=== PATIENT | female | born 1960 | race Caucasian/White ===

== ENCOUNTER 2016-12-25 09:51 | Emergency (ER) | payer OTHER ==
--- NOTE | ~2016-12-25 | CT4 ---
[facility] A Service of [facility] RADIOLOGY TEXT RESULTS PATIENT: TR CAMPOS LOCATION: [facility] : [birth year] UNIT #: [id number] AGE: [address]: Yvonne Rocha MD SEX: F ORDER DR: [id number] [place] [id number] [facility]. [place], [place] [address] [id number] E MR#: [id number] Acc #: [id number] NAME: TR CAMPOS : 1960 SEX: F STUDY DATE/TIME: 12/25/2016 12:04 UNIT: [facility] ROOM: STUDY DESCRIPTION: CT Abd and Pelv Wo Cont Attending Physician: Yvonne Rocha M.D. Ordering Physician: Yvonne Rocha M.D. Primary Care Physician: No Primary Care Physician MEDICAL IMAGING REPORT This report is preliminary unless electronic signature is present EXAM Abdomen and pelvis CT, no contrast, 12/25/2016. INDICATION 56-year-old female with lower abdominal pain, right back pain for 3 days. History of renal malignancy in 2002, status post appendectomy and hysterectomy. TECHNIQUE Noncontrast abdomen and pelvis CT was performed. This CT exam was performed with one or more of the following radiation dose reduction techniques: automatic exposure control, adjustment of mA and/or kV according to patient size, and iterative reconstruction. COMPARISON STUDIES No comparison studies. FINDINGS CT ABDOMEN: Exam markedly degraded by noncontrast technique. Augmentation mammoplasty changes present bilaterally. Minimal atelectasis in the included lung bases. The heart is borderline enlarged. Mild pectus deformity present. Trace pericardial thickening/fluid present. Aorta demonstrates no aneurysm. Spleen and adrenal glands are unremarkable along with the pancreas. Gallbladder and liver unremarkable. No hydronephrosis or radiopaque stone associated with either kidney. There are metallic clips inferior to the right kidney and at the base of the cecum most characteristic of prior appendectomy or other surgical procedure. No retroperitoneal adenopathy. CT PELVIS: Bladder unremarkable. Uterus surgically absent. There are vascular calcifications in the pelvis. No adnexal mass, free fluid, [facility] of [facility] RADIOLOGY TEXT RESULTS PATIENT: TR CAMPOS [id number] [birth year] UNIT #: [id number] AGE: [address]: Yvonne Rocha MD SEX: F ORDER DR: drainable fluid collection present. Bowel otherwise unremarkable. Inguinal canals unremarkable. No suspicious bone lesion. IMPRESSION Negative noncontrast abdomen and pelvis CT. Surgical absence of the uterus and appendix. No radiopaque stone or hydronephrosis of either kidney. Dictated by... Benedicto Tirado M.D. THIS IS AN ELECTRONICALLY VERIFIED REPORT Benedicto Tirado M.D. at 12/25/2016 5:15 PM TOM/pj TD: 12/25/2016 16:16 JOB #: [id number] MEDICAL IMAGING REPORT COPY
[2016-12-25 09:25] LABS: URINE SOURCE CLEAN CATCH
[2016-12-25 09:30] LABS: URINE APPEARANCE CLEAR; URINE BILIRUBIN NEG (NEG); URINE BLOOD TRACE (NEG); URINE COLOR YELLOW; URINE GLUCOSE NEG (NEG); URINE KETONE NEG (NEG); URINE LEUKOCYTE ESTERASE 1+ (NEG); URINE NITRATE NEG (NEG); URINE PH 5.5 (5-8); URINE PROTEIN NEG (NEG); URINE SPECIFIC GRAVITY 1.014 (1.003-1.035); URINE UROBILINOGEN 0.2 MG/DL (NEG)
[2016-12-25 09:33] LABS: CULTURE INDICATED? YES; URINE BACTERIA AUWI NEG (NEGATIVE); URINE SQUAMOUS EPITHELIAL CELL OCC /[HPF]
[2016-12-25 09:45] LABS: URINE MUCUS PRESENT
[2016-12-25 10:07] LABS: BASOPHIL% 0.5 % (0-2.5); EOSINOPHIL# 0.2 X10e3 (0-0.7); EOSINOPHIL% 2.9 % (0.0-7.0); HEMATOCRIT 41.3 % (35.0-45.0); HEMOGLOBIN 13.4 gm/dL (12.0-16.0); LYMPHOCYTE# 2.8 X10e3 (1.0-3.5); LYMPHOCYTE% 34.5 % (17.0-45.0); MEAN CELL VOLUME 95.7 FL (83-96); MEAN CORPUSCULAR HEMOGLOBIN 31.2 PG (28-34); MEAN CORPUSCULAR HGB CONC 32.6 g/dL (30-36); MEAN PLATELET VOLUME 8.2 FL (6.5-11.5); MONOCYTE# 0.5 X10e3 (0-1.0); MONOCYTE% 6.4 % (3.0-12.0); NEUTROPHIL# 4.5 X10e3 (1.5-7.1); NEUTROPHIL% 55.7 % (40-75); PLATELET COUNT 268 X10e3 (140-420); RED BLOOD COUNT 4.31 X10e (3.90-5.30); RED CELL DISTRIBUTION WIDTH 14.3 % (11.0-15.5); WHITE BLOOD COUNT 8.1 X10e3 (4.0-10.5)
[2016-12-25 10:13] LABS: DIFF IND NO
[2016-12-25 10:38] LABS: BILIRUBIN, DIRECT 0.1 mg/dL (0.0-0.2); BILIRUBIN,INDIRECT 0.5 mg/dL (0.0-0.9); BILIRUBIN,TOTAL 0.6 mg/dL (0.2-2.0); CALCIUM SERUM 9.6 mg/dL (8.4-10.2); CREATININE SERUM 1.2 mg/dL (0.6-1.4); GLOM FILT RATE Estimated 49.8 mL/min (>60); POTASSIUM 3.5 mmol/L (3.5-5.1); PROTEIN TOTAL SERUM 7.2 g/dL (6.0-8.3)
== END 2016-12-25 15:15 | disposition home or self-care (01) ==
LOC: CED 09:51
PROVIDERS: Nurse Practitioner
DX: R10.9 Unspecified abdominal pain (principal); R11.2 Nausea with vomiting, unspecified; I10 Essential (primary) hypertension; F17.210 Nicotine dependence, cigarettes, uncomplicated; Z91.041 Radiographic dye allergy status; Z87.442 Personal history of urinary calculi
CPT/HCPCS: 36415; 74176; 80048; 80076; 81003; 83605; 83690; 85025; 87040; 87086; 96361; 96374; 96375; 96376; 99284; J2270; J2405

== ENCOUNTER 2017-05-29 10:05 | Emergency (ER) | payer OTHER ==
[~2017-05-29] VITALS: Ht 160 cm; Wt 60.3 kg
--- NOTE | ~2017-05-29 | CT4 ---
[facility] A Service of [facility] RADIOLOGY TEXT RESULTS PATIENT: TR CAMPOS LOCATION: [facility] : [birth year] UNIT #: [id number] AGE: [address]: Fanta Escobedo APRN SEX: F ORDER DR: [id number] [facility] [address] [place], [place] [address] [id number] E MR#: [id number] Acc #: [id number] NAME: TR CAMPOS : 1960 SEX: F STUDY DATE/TIME: 05/29/2017 13:25 UNIT: [facility] ROOM: STUDY DESCRIPTION: CT Abd and Pelv Wo Cont Attending Physician: Fanta Escobedo A.P.R.N. Ordering Physician: Ed Felton Ga M.D. Primary Care Physician: Tessa Solorzaon M.D. MEDICAL IMAGING REPORT This report is preliminary unless electronic signature is present EXAM CT abdomen and pelvis, 05/29/2017. HISTORY Right flank pain since Wednesday, kidney 20-year cancer, difficulty urinating. History of kidney stones and kidney cancer. TECHNIQUE CT abdomen and pelvis performed without administration of oral or intravenous contrast. This CT exam was performed with one or more of the following radiation dose reduction techniques: automatic exposure control, adjustment of mA and/or kV according to patient size, and iterative reconstruction. FINDINGS Lung bases clear. Inferior heart and pericardium unremarkable. Liver, gallbladder, spleen, pancreas, adrenal glands, kidneys unremarkable. No hydronephrosis, nephrolithiasis or perinephric inflammatory change or suspicious renal mass lesion on these noncontrast enhanced images. The bilateral ureters are normal in appearance. Urinary bladder contains a Babcock catheter and is decompressed. No inguinal adenopathy. CT PELVIS: Status post hysterectomy. There is no pelvic or retroperitoneal adenopathy. The distal esophagus, stomach, small bowel are unremarkable. Surgical clips adjacent to the cecum. Patient appears to be status post appendectomy. Tablets in the colon. Large stool burden seen throughout the colon without pathologic dilatation. No colonic inflammatory change. Correlate with any clinical signs or symptoms of constipation. No free air or fluid collection. Scattered atherosclerotic arterial calcifications. Bony structures are remarkable. IMPRESSION 1. No acute abnormality involving the kidneys. No hydronephrosis, STS. [facility] A Service of [facility] RADIOLOGY TEXT RESULTS PATIENT: TR CAMPOS LOCATION: [facility] : [birth year] UNIT #: [id number] AGE: [address]: Fanta Escobedo [employer] SEX: F ORDER DR: nephrolithiasis or inflammatory change. No renal mass lesion suggested. No secondary signs of recent stone passage. 2. Postoperative changes of appendectomy and hysterectomy. 3. Large stool burden throughout colon without pathologic dilatation or inflammatory change. No obstruction. The findings may reflect constipation. Correlate clinically. 4. Gallbladder, pancreas unremarkable. 5. See remainder of findings in body of report. Dictated by... Rocco Hickey M.D. THIS IS AN ELECTRONICALLY VERIFIED REPORT Rocco Hickey M.D. at 05/30/2017 9:31 PM MAHESH/raphael TD: 05/29/2017 19:24 JOB #: [id number] MEDICAL IMAGING REPORT Page 1 of 1 COPY
[2017-05-29 11:27] LABS: URINE SOURCE CLEAN CATCH
[2017-05-29 11:31] LABS: URINE APPEARANCE CLEAR; URINE BILIRUBIN NEG (NEG); URINE BLOOD NEG (NEG); URINE COLOR YELLOW; URINE GLUCOSE NEG (NEG); URINE KETONE NEG (NEG); URINE LEUKOCYTE ESTERASE NEG (NEG); URINE NITRATE NEG (NEG); URINE PROTEIN NEG (NEG); URINE SPECIFIC GRAVITY 1.011 (1.003-1.035); URINE UROBILINOGEN 0.2 MG/DL (NEG)
[2017-05-29 11:35] LABS: BASOPHIL# 0.1 X10e3 (0-0.3); BASOPHIL% 0.8 % (0-2.5); EOSINOPHIL# 0.1 X10e3 (0-0.7); EOSINOPHIL% 1.7 % (0.0-7.0); HEMATOCRIT 37.6 % (35.0-45.0); HEMOGLOBIN 12.8 gm/dL (12.0-16.0); LYMPHOCYTE# 3.3 X10e3 (1.0-3.5); LYMPHOCYTE% 37.7 % (17.0-45.0); MEAN CELL VOLUME 94.3 FL (83-96); MEAN CORPUSCULAR HEMOGLOBIN 32.1 PG (28-34); MEAN PLATELET VOLUME 7.8 FL (6.5-11.5); MONOCYTE# 0.5 X10e3 (0-1.0); MONOCYTE% 5.2 % (3.0-12.0); NEUTROPHIL# 4.7 X10e3 (1.5-7.1); NEUTROPHIL% 54.6 % (40-75); PLATELET COUNT 279 X10e3 (140-420); RED BLOOD COUNT 3.98 X10e (3.90-5.30); RED CELL DISTRIBUTION WIDTH 13.8 % (11.0-15.5); WHITE BLOOD COUNT 8.7 X10e3 (4.0-10.5)
[2017-05-29 11:36] LABS: DIFF IND NO
[2017-05-29 11:39] LABS: CULTURE INDICATED? NO
[2017-05-29 12:05] LABS: ALBUMIN SERUM 4.3 g/dL (3.5-5.0); BILIRUBIN,TOTAL 0.7 mg/dL (0.2-2.0); CALCIUM SERUM 9.4 mg/dL (8.4-10.2); GLOM FILT RATE Estimated 63.8 mL/min (>60); POTASSIUM 3.3 mmol/L (3.5-5.1); PROTEIN TOTAL SERUM 7.7 g/dL (6.0-8.3)
== END 2017-05-29 16:05 | disposition home or self-care (01) ==
LOC: CED 10:05
PROVIDERS: Nurse Practitioner
DX: R30.0 Dysuria (principal); R10.9 Unspecified abdominal pain; E87.6 Hypokalemia; Z87.891 Personal history of nicotine dependence; Z90.710 Acquired absence of both cervix and uterus; Z90.49 Acquired absence of other specified parts of digestive tract; Z91.041 Radiographic dye allergy status
CPT/HCPCS: 36415; 51702; 74176; 80053; 81003; 85025; 96361; 96374; 96375; 99284; J2270; J2405

== ENCOUNTER 2017-05-31 11:19 | Inpatient (IN) | payer OTHER ==
[~2017-05-31] VITALS: Ht 160 cm; Wt 63.4 kg
--- NOTE | ~2017-05-31 | CO ---
Unit #: [id number] #: [id number] Patient: TR CAMPOS [id number] [address] [place], [place] [address] [id number] I MR#: [id number] NAME: TR CAMPOS ROOM: 55 Age: 56 Sex: F Admission Date: 05/31/2017 : 1960 Attending Physician: Tessa Solorzano M.D. Primary Care Physician: Tessa Solorzano M.D. Consultation Date: 05/31/2017 CONSULTATION REPORT REASON FOR CONSULTATION Urinary retention. HISTORY OF PRESENT ILLNESS This is a 56-year-old woman, who follows with my partner, Radha Montoya, who was in the emergency department 2 days ago with acute urinary retention. She was discharged home with Babcock catheter. She returns today complaining of dizziness and right lower quadrant pain, although both currently improved. She denies frequency, urgency, or even nocturia, but has hesitancy and trouble emptying. She has taken Flomax for years and at one point was catheterized herself, but only about every other day. She denies any history of gross hematuria. She has past 6 or 7 kidney stones lifelong and never required surgery. She does have frequent urinary infections every month or two. Most recently, she underwent a negative anatomic evaluation by Dr. Garcia with CT scan, stone protocol negative on 01/25/2017 and a negative cystoscopy on 02/16/2017, due for followup in August. PAST MEDICAL HISTORY Bipolar disorder, hypertension, allergies, hyperlipidemia. PAST SURGICAL HISTORY States part of her left kidney removed for cancer, but there is no flank, abdominal, or laparoscopic incisional scar noted which she states this was 15 to 20 years ago. She also states she had lymph nodes removed from all over for cancer, but no chemotherapy and states that these were removed from her neck, left axilla, occipital area, and groin. Other documented surgeries include a hysterectomy, appendectomy, breast implants. MEDICATIONS Include Stahist, Cipro, Zofran, phenazopyridine, Singulair, Lexapro, Glucophage, Coreg, chlorthalidone, gabapentin, allergy relief, Victoza, Flonase, Lipitor, Ambien, Seroquel. Tamsulosin was not included in this list, but the patient reportedly takes it. ALLERGIES Intravenous contrast. FAMILY HISTORY Noncontributory. SOCIAL HISTORY States she stops smoking 30 days ago and has subsequently discontinued Chantix. Unit #: [id number] #: [id number] Patient: TR CAMPOS REVIEW OF SYSTEMS Denies constipation or diarrhea. Reports some subjective chills, but no fever. PHYSICAL EXAMINATION VITAL SIGNS: Include temperature 97.3, pulse 80, blood pressure 139/76, respirations 18, height 5 feet 3 inches, weight 137 pounds, BMI 24. GENERAL: The patient is pleasant, alert, sitting up, eating in the emergency department trauma room, mildly hard, but pleasant affect and normal mood. HEENT: Unremarkable. LUNGS: Clear. CARDIAC: Rate and rhythm regular. ABDOMEN: Moderately obese. Soft and nontender. No masses, hernias, scars, or other abnormalities. EXTREMITIES: No edema. NEUROLOGIC: Intact. Babcock catheter in place, draining clear yellow urine. DIAGNOSTIC STUDIES LABORATORY RESULTS: Include urinalysis normal from 05/29/2017. Today, there was 1+ leukocyte esterase, no blood, no nitrites, and no bacteria, 2 to 5 white cells. Creatinine 0.9. WBC 8.8. IMPRESSION 1. Chronic urinary retention. 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 2. Recurrent urinary tract infection secondary to #1, but no evidence of infection on recent emergency department admission or today. PLAN We will follow up on renal ultrasound that was ordered. We will resume tamsulosin b.i.d. Assuming the patient clinically stable, can pursue a voiding trial in 1 to 2 days. She should keep followup with Dr. Garcia and they wished to resume self catheterization in the meantime. Thank you for the consultation. We will follow with you as evidently mild sepsis is being ruled out. Dictated by... Wil Howell M.D. MIC/sam TD: 05/31/2017 17:21 JOB #: [id number] CONSULTATION REPORT Page 1 of 1 X Wil Howell MD CONSULTATION REPORT
--- NOTE | ~2017-05-31 | CT71 ---
[facility] A Service of [facility] RADIOLOGY TEXT RESULTS PATIENT: TR CAMPOS LOCATION: [place] [address] : [birth year] UNIT #: [id number] AGE: [address]: Tessa Solorzano MD SEX: F ORDER DR: [id number] [place] [id number] [place], [place] [address] [id number] I MR#: [id number] Acc #: [id number] NAME: TR CAMPOS : 1960 SEX: F STUDY DATE/TIME: 06/02/2017 18:04 UNIT: [facility] ROOM: [facility] STUDY DESCRIPTION: CT Head Wo Contrast Attending Physician: Tessa Solorzano M.D. Ordering Physician: Reza Choe M.D. Primary Care Physician: Tessa Solorzano M.D. MEDICAL IMAGING REPORT This report is preliminary unless electronic signature is present EXAM Head CT, no contrast, 06/02/2017 HISTORY Weakness and dizziness for 2 days. COMPARISON None. PROCEDURE Axial unenhanced head CT. This CT exam was performed with one or more of the following radiation dose reduction techniques: automatic exposure control, adjustment of mA and/or kV according to patient size, and iterative reconstruction. FINDINGS There is no intracranial hemorrhage or mass. There is no hydrocephalus or extraaxial fluid collection. The extracranial soft tissues are normal. The skull base and calvarium are normal. IMPRESSION Normal negative unenhanced head CT. Dictated by... Douglas Harris M.D. THIS IS AN ELECTRONICALLY VERIFIED REPORT Douglas Harris M.D. at 06/03/2017 4:59 PM YOAN/carmina [facility] A Service [facility] RADIOLOGY TEXT RESULTS PATIENT: TR CAMPOS LOCATION: [place] [address] : [birth year] UNIT #: [id number] AGE: [address]: Tessa Solorzano MD SEX: F ORDER DR: TD: 06/02/2017 23:31 JOB #: [id number] MEDICAL IMAGING REPORT Page 1 of 1 COPY
--- NOTE | ~2017-05-31 | CR72 ---
[facility] A Service of [facility] RADIOLOGY TEXT RESULTS PATIENT: TR CAMPOS LOCATION: [place] [address]- : [birth year] UNIT #: [id number] AGE: [address]: Tessa Solorzano MD SEX: F ORDER DR: [id number] [facility] [address] [facility] [place], [place] [address] [id number] I MR#: [id number] Acc #: [id number] NAME: TR CAMPOS : 1960 SEX: F STUDY DATE/TIME: 05/31/2017 12:18 UNIT: [facility] ROOM: [facility] STUDY DESCRIPTION: CR Chest Single View Portable Attending Physician: Tessa Solorzano M.D. Ordering Physician: Bong Apodaca M.D. Primary Care Physician: Tessa Solorzano M.D. MEDICAL IMAGING REPORT This report is preliminary unless electronic signature is present EXAM Chest portable, 05/31/2017 1218 hours CLINICAL HISTORY 56-year-old woman complaining of shortness of air, weakness and dizziness today. History of kidney cancer and lymphatic cancer. COMPARISON CT abdomen 05/29/2017. No prior chest film. FINDINGS Single portable upright view of the chest demonstrates low lung volumes. The heart size is at the upper limits of normal and there is a tortuous aorta. There is mild soft tissue prominence in the azygos region measuring up to 2.3 cm which could represent prominent azygos vein or lymph node. The lungs are clear. No effusion is seen. IMPRESSION 1. Low lung volume film with clear lungs. No effusions. 2. Soft tissue fullness in the right paratracheal region could represent vascular structures or lymph node enlargement. Consider followup two-view chest film or chest CT if warranted. Dictated by... Smiley Quintana M.D. THIS IS AN ELECTRONICALLY VERIFIED REPORT Smiley Quintana M.D. at 06/01/2017 9:11 AM ELISEO/carmina [facility] A Service of [facility] RADIOLOGY TEXT RESULTS PATIENT: TR CAMPOS LOCATION: [facility] [id number] : [birth year] UNIT #: [id number] AGE: [address]: Tessa Solorzano MD SEX: F ORDER DR: TD: 05/31/2017 21:36 JOB #: [id number] MEDICAL IMAGING REPORT Page 1 of 1 COPY
--- NOTE | ~2017-05-31 | DS ---
Unit #: [id number] #: [id number] Patient: TR CAMPOS [id number] [address] [address] [id number] I MR#: [id number] NAME: TR CAMPOS ROOM: 55 Age: 56 Sex: F Admission Date: 05/31/2017 : 1960 Discharge Date: 06/03/2017 Attending Physician: Tessa Solorzano M.D. Primary Care Physician: Tessa Solorzano M.D. DISCHARGE SUMMARY DISCHARGE DIAGNOSES 1. Pre-syncope status post negative workup, status post negative computed tomography of the head. No more episodes of extreme lightheadedness and pre-syncope while in the hospital. Stable to be discharged. 2. Questionable sepsis with questionable urinary tract infection. Was treated with empiric antibiotics. Blood culture negative. Urine unremarkable. Stable to be discharged. 3. Urinary retention status post urology evaluation. Follow up with urology as an outpatient. Started on Flomax. 4. History of bipolar disorder. Continue home medicines. 5. History of restless leg syndrome. Continue home medications. 6. Hypertension. Stable. Resume home medicines. DISCHARGE MEDICATIONS 1. Flomax 0.4 mg b.i.d. 2. Tylenol 650 q.4 p.r.n. 3. Flonase 1 spray daily. 4. Gabapentin 300 mg daily. 5. Lexapro 20 mg daily. 6. Metformin 1,000 mg b.i.d. 7. Zofran 4 mg q.6 p.r.n. 8. Claritin 10 mg daily. 9. Seroquel 200 mg daily. 10. Ambien, home dose was 10 mg; here in the hospital she was on 5 mg. Recommend taking half tablet daily as needed at bedtime. 11. Coreg 6.25 mg p.o. b.i.d. 12. Chlorthalidone 25 mg daily. 13. Lipitor 20 mg daily. 14. Singulair 10 mg daily. 15. Victoza 1.2 mg subcu daily. FOLLOW-UP Patient is to follow up with her primary care physician in 2-3 days and urology as an outpatient. Dictated by... William Barnes/guillermo TD: 06/03/2017 18:23 Unit #: [id number] #: [id number] Patient: TR CAMPOS JOB #: [id number] DISCHARGE SUMMARY Page 1 of 1 X Reza Choe MD X DISCHARGE SUMMARY
--- NOTE | ~2017-05-31 | HP ---
Unit #: [id number] #: [id number] Patient: TR CAMPOS [id number] [address] [place], [place] [address] [id number] I MR#: [id number] NAME: TR CAMPOS ROOM: [address] Age: 56 Sex: F Admission Date: 05/31/2017 : 1960 Attending Physician: Tessa Solorzano M.D. Primary Care Physician: Tessa Solorzano M.D. HISTORY AND PHYSICAL CHIEF COMPLAINT Dizziness and passing out episode. HISTORY OF PRESENTING ILLNESS A 56-year-old female with multiple medical problems, diabetes mellitus type 2, hypertension, hyperlipidemia, insomnia, restless leg syndrome, chronic tobacco abuse, and history of urinary retention, has been having problems with UTI and abdominal pain for the last few days. Patient was seen in the office on May 29, 2017, when she came stating that she has not urinated. Patient is on Flomax. Patient has seen a urologist in the past but was told there is nothing wrong, so she never went back. Patient came to the ER on Wednesday. A Babcock catheter was placed, antibiotics were started, and patient was sent home. This morning she got and passed out when she got up from the bed and came to the ER. Patient was hypotensive, and lactic acid was 3.7, although patient has metformin at home. Patient is feeling generalized weakness, tiredness, just does not feel well, and has abdominal pain and maybe some back pain also. No complaint of fever, but she has been sweating at home. No complaint of chills. No complaint of chest pain or shortness of breath. No complaint of constipation or diarrhea. Patient was constipated two days ago, but according to her, she had a bowel movement this morning. Does not complain of dysuria. According to her, she was urinating well yesterday she saw in the Babcock catheter, but this morning again it had dropped down. PAST MEDICAL HISTORY 1. Hypertension. 2. Hyperlipidemia. 3. Type 2 diabetes mellitus. 4. History of bipolar disorder. 5. Insomnia. 6. Restless leg syndrome. 7. Tobacco abuse. 8. Previous history of urinary retention. 9. Patient has been hospitalized multiple times. One time, she was admitted to [facility] because of sepsis secondary to UTI. FAMILY HISTORY Patient's mother has hypertension and some thyroid disease. Patient's father had coronary artery disease. He had an VT in his late 40s. He was also diagnosed with bladder cancer and at the age of 72. Patient's brother is diabetic, and patient's paternal grandfather of colon cancer. Patient's maternal grandmother had a stroke at a young age, but Unit #: [id number] #: [id number] Patient: TR CAMPOS she in her 90s. SOCIAL HISTORY Patient has a long history of smoking. No history of alcohol abuse and no history of drug abuse. PAST SURGICAL HISTORY 1. Breast implants. 2. History of bladder repair maybe. 3. Oral surgery in April 2017. 4. Appendectomy. 5. Full hysterectomy. REVIEW OF SYSTEMS As per History of Presenting Illness. PHYSICAL EXAMINATION GENERAL: Patient is being evaluated in ER, T2. VITAL SIGNS: Blood pressure is 104/80, respiratory rate 18, pulse 84, temperature 97.5, and oxygen saturation is 98% On standing, patient's blood pressure dropped down to 70/60. Patient's weight is 137 pounds. HEENT: Head is normocephalic. Eye movements are normal. Patient is edentulous. Oral cavity seems to be stable. CHEST: Fair air entry. No additional sounds. CARDIOVASCULAR: S1 and S2 positive. Regular rhythm. ABDOMEN: Mild tenderness is present, kind of generalized. No CVA tenderness. Bowel sounds are positive. EXTREMITIES: Negative edema. CENTRAL NERVOUS SYSTEM: Awake, alert, and oriented x3. No focal neurological deficit. DIAGNOSTIC STUDIES LABORATORY: WBC 8.8, hemoglobin 12.3, hematocrit 36.2, and platelet count of 308,000. Troponin is less than 0.05. Urinalysis was done which shows leukocyte esterase 1+. Lactic acid 3.9. Sodium 138, potassium 3.8, chloride 101, BUN 8, and creatinine 0.9. Liver enzymes are stable. Troponin less than 0.03. ASSESSMENT Patient is being admitted to telemetry unit with diagnoses of: 1. Dizziness, possible presyncopal episode. 2. Orthostatic hypotension. 3. Possible sepsis. 4. Urinary tract infection. 5. History of urinary retention. 6. Bipolar disorder. 7. Hyperlipidemia. 8. Restless leg syndrome. PLAN Admit to telemetry unit. IV Rocephin is being started, and IV fluids are being started. Patient will be placed on sepsis protocol. Home medications have been reviewed and adjusted. Dr. Barney will be consulted. Ultrasound of bilateral kidneys will be done. Accu-Cheks a.c. and at bedtime with insulin sliding scale. DVT prophylaxis will be done with Lovenox 40 mg subcutaneous daily. IV Protonix 40 mg daily for peptic ulcer disease prophylaxis. The plan of care has been discussed with patient. Please refer to progress note for further orders. Unit #: [id number] #: [id number] Patient: TR CAMPOS Dictated by William Mcneil/terrie TD: 05/31/2017 15:39 JOB #: [id number] HISTORY AND PHYSICAL Page 1 of 1 X Tessa Solorzano MD X HISTORY AND PHYSICAL
--- NOTE | ~2017-05-31 | EKG ---
PATIENT: TR CAMPOS UNIT #: [id number] Ventricular Rate: 86 BPM Atrial Rate: 86 BPM P-R Interval: 166 ms QRS Duration: 66 ms Q-T Interval: 396 ms QTC Calculation(Bezet): 473 ms P Lydia: 46 degrees Calculated R Lydia: -9 degrees Calculated T Lydia: 13 degrees Diagnosis Line: Normal sinus rhythm Diagnosis Line: Nonspecific T wave abnormality Diagnosis Line: Prolonged QT Diagnosis Line: Abnormal ECG Diagnosis Line: No previous ECGs available Diagnosis Line: Confirmed by HUMBLE WHITLOCK MD ([id number]) on 05/31/2017 Diagnosis Line: 10:13:12 PM INTERPRETING MD: KAMLESH BUTLER
--- NOTE | ~2017-05-31 | US77 ---
[facility] A Service of [facility] RADIOLOGY TEXT RESULTS PATIENT: TR CAMPOS LOCATION: [place] [address] : [birth year] UNIT #: [id number] AGE: [address]: Tessa Solorzano MD SEX: F ORDER DR: [id number] [facility] [address] [place], [place] [address] [id number] I MR#: [id number] Acc #: [id number] NAME: TR CAMPOS : 1960 SEX: F STUDY DATE/TIME: 05/31/2017 16:14 UNIT: [facility] ROOM: [facility] STUDY DESCRIPTION: US Kidney Bilateral Complete Attending Physician: Tessa Solorzano M.D. Ordering Physician: Tessa Solorzano M.D. Primary Care Physician: Tessa Solorzano M.D. MEDICAL IMAGING REPORT This report is preliminary unless electronic signature is present EXAM Bilateral renal ultrasound 05/31/2017 HISTORY Acute kidney insufficiency discovered today in ER, diabetes, hypertension. FINDINGS Real-time ultrasonography of the kidneys performed bilaterally. Right kidney measures 11.64 cm in greatest length. The left kidney measures 11.84 cm in greatest length. There is no hydronephrosis or nephrolithiasis. No cystic or solid mass lesions and no perinephric fluid collections. Small portions of the right hepatic lobe are seen and are unremarkable. The patient has a Babcock catheter in place and the urinary bladder is decompressed. IMPRESSION 1. The bilateral kidneys are morphologically normal. No hydronephrosis, nephrolithiasis, cystic or solid mass lesion and no perinephric fluid collection. 2. Decompressed urinary bladder with Babcock catheter. Dictated by... Rocco Hickey M.D. THIS IS AN ELECTRONICALLY VERIFIED REPORT Rocco Hickey M.D. at 06/02/2017 6:14 PM Pamella TD: 06/01/2017 07:25 JOB #: [id number] [facility] A Service of [facility] RADIOLOGY TEXT RESULTS PATIENT: TR CAMPOS LOCATION: [facility] [id number] : [birth year] UNIT #: [id number] AGE: [address]: Tessa Solorzano MD SEX: F ORDER DR: MEDICAL IMAGING REPORT Page 1 of 1 COPY
[2017-05-31 12:06] LABS: URINE SOURCE CLEAN CATCH
[2017-05-31 12:11] LABS: URINE APPEARANCE CLEAR; URINE BILIRUBIN NEG (NEG); URINE BLOOD TRACE (NEG); URINE COLOR YELLOW; URINE GLUCOSE NEG (NEG); URINE KETONE NEG (NEG); URINE LEUKOCYTE ESTERASE 1+ (NEG); URINE NITRATE NEG (NEG); URINE PH 7.5 (5-8); URINE PROTEIN 2+ (NEG); URINE SPECIFIC GRAVITY 1.022 (1.003-1.035)
[2017-05-31 12:12] LABS: BASOPHIL# 0.1 X10e3 (0-0.3); BASOPHIL% 0.6 % (0-2.5); EOSINOPHIL# 0.2 X10e3 (0-0.7); EOSINOPHIL% 1.9 % (0.0-7.0); HEMATOCRIT 36.2 % (35.0-45.0); HEMOGLOBIN 12.3 gm/dL (12.0-16.0); LYMPHOCYTE# 2.5 X10e3 (1.0-3.5); MEAN CELL VOLUME 95.2 FL (83-96); MEAN CORPUSCULAR HEMOGLOBIN 32.5 PG (28-34); MEAN CORPUSCULAR HGB CONC 34.1 g/dL (30-36); MEAN PLATELET VOLUME 7.8 FL (6.5-11.5); MONOCYTE# 0.4 X10e3 (0-1.0); MONOCYTE% 4.9 % (3.0-12.0); NEUTROPHIL# 5.6 X10e3 (1.5-7.1); NEUTROPHIL% 63.6 % (40-75); PLATELET COUNT 308 X10e3 (140-420); RED CELL DISTRIBUTION WIDTH 13.8 % (11.0-15.5); URINE BACTERIA AUWI NEG (NEGATIVE); URINE SQUAMOUS EPITHELIAL CELL OCC /[HPF]; WHITE BLOOD COUNT 8.8 X10e3 (4.0-10.5)
[2017-05-31 12:13] LABS: DIFF IND NO
[2017-05-31 12:19] LABS: POC - CKMB <1.0 ng/mL (0.0-7.9); POC - TROPONIN <0.05 ng/mL (<=0.05)
[2017-05-31 12:21] LABS: URBCS1 AUWI 0-2 /[HPF] (0-2); URINE MUCUS PRESENT
[2017-05-31 12:38] LABS: ALBUMIN SERUM 3.8 g/dL (3.5-5.0); BILIRUBIN, DIRECT 0.1 mg/dL (0.0-0.2); BILIRUBIN,INDIRECT 0.4 mg/dL (0.0-0.9); BILIRUBIN,TOTAL 0.5 mg/dL (0.2-2.0); BUN/CREATININE RATIO 8.88; CALCIUM SERUM 8.8 mg/dL (8.4-10.2); CREATININE SERUM 0.9 mg/dL (0.6-1.4); GLOM FILT RATE Estimated 72.5 mL/min (>60); POTASSIUM 3.8 mmol/L (3.5-5.1); PROTEIN TOTAL SERUM 6.7 g/dL (6.0-8.3)
[2017-05-31] MEDS ORDERED: PATIENT'S PHARMACY (12:47)
[2017-05-31] MEDS ORDERED: PYRIDIUM PO (12:48)
[2017-05-31] MEDS ORDERED: STAHIST AD TAB1 EACH PO (12:48)
[2017-05-31] MEDS ORDERED: LEXAPRO20 MG PO (12:48)
[2017-05-31] MEDS ORDERED: ZOFRAN PO (12:48)
[2017-05-31] MEDS ORDERED: CIPRO PO (12:48)
[2017-05-31] MEDS ORDERED: SINGULAIR PO (12:48)
[2017-05-31] MEDS ORDERED: GABAPENTIN300 M2 PO (12:49)
[2017-05-31] MEDS ORDERED: COREG6.25 MG PO (12:49)
[2017-05-31] MEDS ORDERED: METFORMIN PO (12:49)
[2017-05-31] MEDS ORDERED: CHLORTHALIDONE25 MG PO (12:49)
[2017-05-31] MEDS ORDERED: ALLERGY RELIEF10 M1 PO (12:49)
[2017-05-31] MEDS ORDERED: VICTOZA0.6 MG/0.1 SUBQ (12:49)
[2017-05-31] MEDS ORDERED: AMBIEN10 MG PO (12:50)
[2017-05-31] MEDS ORDERED: LIPITOR20 MG PO (12:50)
[2017-05-31] MEDS ORDERED: SEROQUEL PO (12:50)
[2017-05-31] MEDS ORDERED: FLONASE 0.05% N16 G1 (12:50)
[2017-06-02 06:30] LABS: HEMATOCRIT 34.8 % (35.0-45.0); HEMOGLOBIN 11.9 gm/dL (12.0-16.0); MEAN CELL VOLUME 94.7 FL (83-96); MEAN CORPUSCULAR HEMOGLOBIN 32.5 PG (28-34); MEAN CORPUSCULAR HGB CONC 34.3 g/dL (30-36); MEAN PLATELET VOLUME 8.6 FL (6.5-11.5); RED BLOOD COUNT 3.67 X10e (3.90-5.30); RED CELL DISTRIBUTION WIDTH 13.8 % (11.0-15.5)
[2017-06-02 09:26] LABS: CALCIUM SERUM 8.7 mg/dL (8.4-10.2); CARBON DIOXIDE 25 mmol/L (22-31); CHLORIDE 108 mmol/L (100-111); CREATININE SERUM 0.8 mg/dL (0.6-1.4); GLOM FILT RATE Estimated 83.7 mL/min (>60); GLUCOSE FASTING 98 mg/dL (70-110); POTASSIUM 3.8 mmol/L (3.5-5.1); SODIUM 144 mmol/L (135-145)
[2017-06-02 09:27] LABS: BLOOD UREA NITROGEN <5 mg/dL (9-23); BUN/CREATININE RATIO 6.25
[2017-06-03] MEDS ORDERED: FLOMAX0.4 M1 PO (18:15)
[2017-06-03] MEDS ORDERED: ACETAMINOPHEN PO (18:16)
== END 2017-06-03 18:50 | disposition home or self-care (01) | DRG 872 ==
LOC: CED 11:19 → CEDOF 13:07 → CED 13:51 → C5B 13:51 → CEDOF 13:51 → C5B 13:51 → CEDOF 17:31 → C5B 06-03 18:50
PROVIDERS: Emergency Medicine; Physician Assistant Medical
DX: A41.9 Sepsis, unspecified organism (principal); I10 Essential (primary) hypertension; N39.0 Urinary tract infection, site not specified; R33.9 Retention of urine, unspecified; G25.81 Restless legs syndrome; E78.5 Hyperlipidemia, unspecified; F17.210 Nicotine dependence, cigarettes, uncomplicated; G47.00 Insomnia, unspecified; E11.9 Type 2 diabetes mellitus without complications; F31.9 Bipolar disorder, unspecified; Z82.49 Family history of ischemic heart disease and other diseases of the circulatory system; Z83.3 Family history of diabetes mellitus; Z82.3 Family history of stroke; Z80.52 Family history of malignant neoplasm of bladder; Z80.0 Family history of malignant neoplasm of digestive organs; Z84.89 Family history of other specified conditions; Z87.442 Personal history of urinary calculi; I95.1 Orthostatic hypotension; Z90.710 Acquired absence of both cervix and uterus; Z90.49 Acquired absence of other specified parts of digestive tract; Z96.0 Presence of urogenital implants
CPT/HCPCS: 36415; 70450; 71010; 76770; 80048; 80076; 81003; 82553; 82947; 83605; 84484; 85025; 85027; 87040; 93005; 96361; 96374; 99291; C9113; J0696; J1650; J1815; J2405; J3370

== ENCOUNTER 2017-06-17 03:07 | Emergency (ER) | payer OTHER ==
[~2017-06-17] VITALS: Ht 157.5 cm; Wt 63.4 kg
--- NOTE | ~2017-06-17 | CR127 ---
[facility] A Service of [facility] RADIOLOGY TEXT RESULTS PATIENT: TR CAMPOS LOCATION: [facility] : 64 UNIT #: [id number] AGE: [address]: Gemma Rivers APRN SEX: F ORDER DR: [id number] [facility] [address] [place], [place] [address] [id number] E MR#: [id number] Acc #: [id number] NAME: TR CAMPOS : 1960 SEX: F STUDY DATE/TIME: 06/17/2017 3:40 UNIT: [facility] ROOM: STUDY DESCRIPTION: CR Foot Complete Min 3 View Rt Attending Physician: Gemma Rivers A.P.R.N. Ordering Physician: Gemma Rivers A.P.R.N. Primary Care Physician: Tessa Solorzano M.D. MEDICAL IMAGING REPORT This report is preliminary unless electronic signature is present EXAM Right foot series INDICATIONS Right foot pain today. PROCEDURE 3 views of the right foot. COMPARISON None. FINDINGS No acute fracture or dislocation. IMPRESSION No acute findings. Dictated by... Junior Card M.D. THIS IS AN ELECTRONICALLY VERIFIED REPORT Junior Card M.D. at 06/17/2017 9:55 PM EED/df TD: 06/17/2017 11:16 JOB #: [id number] MEDICAL IMAGING REPORT Page 1 of 1 COPY
--- NOTE | ~2017-06-17 | CR253 ---
[facility] A Service of [facility] RADIOLOGY TEXT RESULTS PATIENT: TR CAMPOS LOCATION: [facility] : 64 UNIT #: [id number] AGE: [address]: Gemma Rivers APRN SEX: F ORDER DR: [id number] [facility] [address] [place], [place] [address] [id number] E MR#: [id number] Acc #: [id number] NAME: TR CAMPOS : 1960 SEX: F STUDY DATE/TIME: 06/17/2017 3:37 UNIT: [facility] ROOM: STUDY DESCRIPTION: CR Tibia and Fibula 2 Views Rt Attending Physician: Gemma Rivers A.P.R.N. Ordering Physician: Gemma Rivers A.P.R.N. Primary Care Physician: Tessa Solorzano M.D. MEDICAL IMAGING REPORT This report is preliminary unless electronic signature is present EXAM Right tib-fib series INDICATION Right lower leg pain today. PROCEDURE 4 views of the right tibia and fibula COMPARISON None FINDINGS No fracture or dislocation. IMPRESSION No acute findings. Dictated by... Junior Card M.D. THIS IS AN ELECTRONICALLY VERIFIED REPORT Junior Card M.D. at 06/17/2017 9:55 PM [place] TD: 06/17/2017 11:25 JOB #: [id number] MEDICAL IMAGING REPORT Page 1 of 1 COPY
[~2017-06-17 03:07] MED LIST: ACETAMINOPHEN PO; ALLERGY RELIEF10 M1 PO; AMBIEN10 MG PO; CHLORTHALIDONE25 MG PO; CIPRO PO; COREG6.25 MG PO; FLOMAX0.4 M1 PO; FLONASE 0.05% N16 G1; GABAPENTIN300 M2 PO; LEXAPRO20 MG PO; LIPITOR20 MG PO; METFORMIN PO; PATIENT'S PHARMACY; PYRIDIUM PO; SEROQUEL PO; SINGULAIR PO; STAHIST AD TAB1 EACH PO; VICTOZA0.6 MG/0.1 SUBQ; ZOFRAN PO
== END 2017-06-17 04:30 | disposition home or self-care (01) ==
LOC: CED 03:07
DX: S93.601A Unspecified sprain of right foot, initial encounter (principal); E11.9 Type 2 diabetes mellitus without complications; E78.5 Hyperlipidemia, unspecified; I10 Essential (primary) hypertension; F17.200 Nicotine dependence, unspecified, uncomplicated; Z79.899 Other long term (current) drug therapy; X50.1XXA Overexertion from prolonged static or awkward postures, initial encounter; Y92.009 Unspecified place in unspecified non-institutional (private) residence as the place of occurrence of the external cause
CPT/HCPCS: 29515; 73590; 73630; 99283